=== PATIENT | male | born 2000 | race Caucasian/White ===

== ENCOUNTER 2019-12-30 20:45 | Emergency (ER) | payer SELFPAY ==
[~2019-12-30] VITALS: Ht 180.3 cm; Wt 81.6 kg
[2019-12-30 21:25] VITALS: Ht 180.3 cm; Wt 81.6 kg
[2019-12-30 21:38] VITALS: BP 117/69
== END 2019-12-30 21:38 | disposition home or self-care (01) ==
LOC: D.ER 20:45
DX: S46.912A Strain of unspecified muscle, fascia and tendon at shoulder and upper arm level, left arm, initial encounter (principal); X58.XXXA Exposure to other specified factors, initial encounter